=== PATIENT | male | born 1965 | race Caucasian/White ===

== ENCOUNTER → 2018-01-07 | Outpatient (CLI) | payer BC ==
[~2018-01-07] MED LIST: IOPAMIDOL (ISOVUE 370) 100 ML BTL IV ONE
== END ==
LOC: FIMAGING 07:01
PROVIDERS: ATTEND Internal Medicine
DX: I82.B12 Acute embolism and thrombosis of left subclavian vein (principal); I26.99 Other pulmonary embolism without acute cor pulmonale
CPT/HCPCS: Q9967

== ENCOUNTER → 2018-02-12 | Day surgery (SDC) | payer BC, OTHER ==
[~2018-02-12] MED LIST changes: -IOPAMIDOL (ISOVUE 370) 100 ML BTL IV ONE; +IOPAMIDOL (ISOVUE-370) 150 ML BTL IV ONE
--- NOTE | 2018-02-12 09:53 | PDRADPRE ---
Radiology History & Physical Indication for procedure: other (LUE DVT) Allergies/Adverse Reactions: No Known Allergies Allergy (Unverified 09/29/13 19:30) Mental status: A&Ox3 Heart exam: regular rate and rhythm Lungs exam: clear to auscultation Mallampati Score: Class 2
--- NOTE | 2018-02-12 09:55 | PDRADPN ---
Radiology Procedure Note Date of Procedure: 02/12/18 Radiologist: Ronn Quiros Anesthesia: Local (Specify) (Lidocaine) Pre-op Diagnosis: LUE DVT Post-op Diagnosis: LUE DVT Indication: Eval for Thoracic outlet syndrome Procedure: LUE venogram Finding(s): Residulal clot in left basilic/axillary/subclavian vein with thyrocervical collaterals on adduction. Abduction views significantly worsen collaterals with compression of left subclavian vein c/w extrinsic compresssion. Please see separately dicated radiology report for further details. Inf/Abcess present in the surg proc area at time of surgery?: No
== END | disposition home or self-care (01) ==
LOC: FIMAGING 08:15
PROVIDERS: ATTEND Surgery
PROC: B5171ZZ Fluoroscopy of Left Subclavian Vein using Low Osmolar Contrast (ICD-10-PCS; principal; 2018-02-12)
DX: I87.1 Compression of vein (principal); G54.0 Brachial plexus disorders; I82.B12 Acute embolism and thrombosis of left subclavian vein; I82.A12 Acute embolism and thrombosis of left axillary vein; I82.612 Acute embolism and thrombosis of superficial veins of left upper extremity
CPT/HCPCS: J1644; Q9967

== ENCOUNTER → 2018-05-07 | Outpatient (CLI) | payer OTHER | LOC: FIMAGING 11:16 | PROVIDERS: ATTEND Surgery | DX: G54.0 Brachial plexus disorders (principal); I82.612 Acute embolism and thrombosis of superficial veins of left upper extremity ==

== ENCOUNTER → 2018-08-07 | Day surgery (SDC) | payer OTHER | LOC: FIMAGING 10:04 | PROVIDERS: ATTEND Radiology Diagnostic Radiology | PROC: B547ZZA Ultrasonography of Left Subclavian Vein, Guidance (ICD-10-PCS; principal; 2018-08-07) | DX: G54.0 Brachial plexus disorders (principal) ==

== ENCOUNTER 2018-09-10 06:29 | Observation (INO) | payer OTHER ==
[2018-09-10] MEDS ORDERED: ceFAZolin 2 GM/DEXTROSE 100 ML IV ONE (06:37)
[2018-09-10] MEDS ORDERED: LR 1,000 ML IV ONE (06:38)
[2018-09-10 07:31] LABS: PLATELET COUNT 240 10^3/uL (150-400)
[2018-09-10] MEDS ORDERED: MIDAZOLAM 2 MG/2 ML VIAL IVP ONE (07:53)
--- NOTE | 2018-09-10 07:53 | PDANEPAE ---
ANE History of Present Illness left thoracic outlet syndrome ANE Past Medical History - Cardiovascular History Hx Hypertension: No Hx Arrhythmias: No Hx Chest Pain: No Hx Coronary Artery / Peripheral Vascular Disease: No Hx CHF / Valvular Disease: No Hx Palpitations: No - Pulmonary History Hx COPD: No Hx Asthma/Reactive Airway Disease: No Hx Recent Upper Respiratory Infection: No Hx Oxygen in Use at Home: No Hx Sleep Apnea: No Sleep Apnea Screening Result - Last Documented: Negative - Neurologic History Hx Cerebrovascular Accident: No Hx Seizures: No Hx Dementia: No - Endocrine History Hx Diabetes: No Hypothyroid: No Hyperthyroid: No Obesity: no - Renal History Hx Renal Disorders: No - Liver History Hx Hepatic Disorders: No - Neurological & Psychiatric Hx Hx Neurological and Psychiatric Disorders: No - Cancer History Hx Cancer: No - Congenital Disorder History Hx Congenital Disorders: No - GI History Hx Gastrointestinal Disorders: No - Other Health History Other Health History: THORACIC OUTLET SYNDROME. LT ARM BASILIC DVT 12/2017 - Chronic Pain History Chronic Pain: Yes (LT ARM) - Surgical History Prior Surgeries: NONE ANE Review of Systems Review of systems is: negative Review of Systems: - Exercise capacity Exercise capacity: >=4 METS METS (RN): 6 METS ANE Patient History - Allergies Allergies/Adverse Reactions: No Known Allergies Allergy (Verified 08/05/18 16:11) - Home Medications Home medications: home medication list seen and reviewed Home Medications: Apixaban [Eliquis] 5 mg PO BID 08/05/18 [Last Taken 09/07/18] - NPO status NPO Status: no food or drink >8 hours NPO Since - Liquids (Date): 09/09/18 NPO Since - Liquids (Time): 21:30 NPO Since - Solids (Date): 09/09/18 NPO Since - Solids (Time): 21:30 - Smoking Hx Smoking Status: Never smoked - Family Anes Hx Family Hx Anesthesia Complications: NONE ANE Labs/Vital Signs - Labs Result Diagrams: 09/10/18 06:37 - Vital Signs Vital Signs: reviewed preoperatively; see RN documention for details Blood Pressure: 106/62 Heart Rate: 61 Respiratory Rate: 16 O2 Sat (%): 94 Height: 167.64 cm Weight: 73.936 kg ANE Physical Exam - Airway Neck exam: FROM Mallampati Score: Class 2 Mouth exam: normal dental/mouth exam - Pulmonary Pulmonary: no respiratory distress - Cardiovascular Cardiovascular: regular rate and rhythym - ASA Status ASA Status: II ANE Anesthesia Plan Anesthesia Plan: general endotracheal anesthesia
--- NOTE | 2018-09-10 08:26 | PDHPUP ---
History & Physical Update H&P update statement: This history and physical update is based on an assessment of the patient which was completed after admission or registration (within 24 hours), but prior to the surgery/procedure. H&P update: H&P reviewed & patient examined, no change in patient's condition since H&P completed
[2018-09-10] MEDS ORDERED: DEXAMETHASONE 4 MG/ML VIAL ONE ×2 (08:38→08:45)
[2018-09-10] MEDS ORDERED: ROCURONIUM 50 MG/5 ML VIAL ONE (08:38)
[2018-09-10] MEDS ORDERED: LIDOCAINE 2% 2 ML INJ ONE (08:38)
[2018-09-10] MEDS ORDERED: ONDANSETRON 4 MG/2 ML VIAL ONE (08:38)
[2018-09-10] MEDS ORDERED: fentaNYL 100 MCG/2 ML INJ ONE ×2 (08:40→11:12)
[2018-09-10] MEDS ORDERED: oxyCODONE IR 5 MG TAB PO PRN (09:38)
[2018-09-10] MEDS ORDERED: ACETAMINOPHEN 500 MG TAB PO PRN (09:38)
[2018-09-10] MEDS ORDERED: HYDROmorphONE/DILAUDID 1 MG/ML INJ IVP PRN ×2 (09:38→11:01)
[2018-09-10] MEDS ORDERED: LABETALOL HCL 5 MG/ML 20 ML MDV IVP PRN (09:38)
[2018-09-10] MEDS ORDERED: fentaNYL 100 MCG/2 ML INJ IVP PRN (09:38)
[2018-09-10] MEDS ORDERED: ALBUTEROL 3 ML DEYVIAL IH PRN (09:38)
[2018-09-10] MEDS ORDERED: LR 500 ML IV PRN (09:38)
[2018-09-10] MEDS ORDERED: METOCLOPRAMIDE 10 MG/2 ML VIAL IVP PRN (09:38)
[2018-09-10] MEDS ORDERED: ONDANSETRON 4 MG/2 ML VIAL IVP PRN ×2 (09:38→11:01)
[2018-09-10] MEDS ORDERED: DIAZEPAM 10 MG/2 ML SYR IVP PRN (09:38)
[2018-09-10] MEDS ORDERED: PHENYLEPHRINE HCL 100 MCG/ML SYR IVP PRN (09:38)
[2018-09-10] MEDS ORDERED: MEPERIDINE 25 MG/0.5 ML AMP IVP PRN (09:38)
[2018-09-10] MEDS ORDERED: DEXAMETHASONE 4 MG/ML VIAL IVP PRN (09:38)
[2018-09-10] MEDS ORDERED: PROMETHAZINE HCL 25 MG/ML INJ IVP PRN (09:38)
[2018-09-10] MEDS ORDERED: NALOXONE HCL 0.4 MG/ML INJ IVP PRN (09:38)
[2018-09-10] MEDS ORDERED: THROMBIN (BOVINE) 20,000 UNIT VIAL TP ONE (10:28)
[2018-09-10] MEDS ORDERED: SUGAMMADEX SODIUM 200 MG/2 ML VIAL IVP ONE (10:28)
[2018-09-10] MEDS ORDERED: KETOROLAC 30 MG/1 ML SDV ONE (10:31)
--- NOTE | 2018-09-10 10:59 | POSTOPPROG ---
Post Op Note Date of Operation: 09/10/18 Surgeon: Miquel Johnson Dubbing Machine Operator: Colette Johnson Anesthesiologist: CHINEDU Hamilton Anesthesia: GET(General Endotracheal) Pre-op Diagnosis: YOLANDAE VEDA c hx of DVT Post-op Diagnosis: same Procedure: transaxillary L 1st rib resection Inf/Abcess present in the surg proc area at time of surgery?: No EBL: Minimal Bowel Protocol: N/A Clean Closure Performed: N/A Specimen(s): rib to pathology
[2018-09-10] MEDS ORDERED: OXYCODONE/APAP 5/325 TAB PO PRN (11:01)
[2018-09-10] MEDS ORDERED: NS 1,000 ML IV SCH (11:15)
--- NOTE | 2018-09-10 15:00 | POSTANESTH ---
Post Anesthetic Evaluation Cardiovascular Status: Normal, Stable Respiratory Status: Normal, Stable Level of Consciousness/Mental Status: Can Participate in Eval Pain Control: Adequate, Prn Tx Ordered Nausea/Vomiting Control: Adequate, Prn Tx Ordered Complications Possibly Related to Anesthesia: None Noted
--- NOTE | 2018-09-10 19:13 | SOAPPROG ---
SOAP Progress Note Assessment/Plan: Assessment/Plan: 53 Y M s/p 1st rib resection for TOS and DVT, POD#0. Doing well. Minimal pain. Ambulating well. Wounds intact. Continue post op care. Dispo: likely tomorrow. 09/10/18 19:11 Objective: Vital Signs Temp Pulse Resp BP Pulse Ox 37.0 C 94 14 129/84 H 91 L 09/10/18 15:02 09/10/18 15:02 09/10/18 15:02 09/10/18 15:02 09/10/18 15:02 Laboratory Results 09/10/18 06:37 09/09/18 09/10/18 09/11/18 05:59 05:59 05:59 Intake Total 1300 Output Total 100 Balance 1200 ICD10 Worksheet Patient Problems: Problems Problem Status Onset Thoracic outlet syndrome Acute
--- NOTE | 2018-09-11 | GOP ---
[f rep st] OPERATIVE REPORT DATE OF OPERATION: 09/10/2018 SURGEON: Miquel Johnson MD FINANCIAL ANALYST ACCOUNTANT: Colette Johnson, MEJIA. ANESTHESIOLOGIST: Dr. Hamilton. PREOPERATIVE DIAGNOSIS: Left thoracic outlet syndrome. POSTOPERATIVE DIAGNOSIS: Left thoracic outlet syndrome. PROCEDURE PERFORMED: Transaxillary left 1st rib resection. FINDINGS: Patient was found to have a tight outlet with a normal first rib and a thick anterior scal gabriela muscle. ESTIMATED BLOOD LOSS: Less than 50 cc. DESCRIPTION OF PROCEDURE: The patient was taken to the operating room where he received a satisfacto ry general endotracheal anesthesia by Dr. Hamilton. He was placed in the left lateral decubitus posi tion at approximately 40 degrees. A short incision was made at the base of the axilla. Dissection w as carried down to the chest wall. The thoracodorsal vessels were divided with hemoclips. The inter costal brachial cutaneous nerve was spared from injury and retracted away. The bottom of the 1st rib was identified. It was opened up with electrocautery and elevated up with a West elevator, separati ng from the underlying pleura. Top of the rib was then cleared using a right angle to help divide th e anterior scalene muscle and dissecting the second and third scalene muscles off the 1st rib. The r ib was then divided posteriorly with a beef ribber with elevation of the brachial plexus. That transe cted rib was then shortened with a rongeur and smoothed out with a rasp. The bone was levered anteri moses where it again was divided with a bone cutter with care to avoid injury to any of the underlying structures. The proximal end was further trimmed back with a rongeur and the ends were smoothed off and left a good wide-open thoracic palate. Hemostasis was assured. Some topical thrombin was place d in the surgical bed. Specimens were all sent to Pathology. The wound was closed with a running 3- 0 Vicryl suture for the subcutaneous tissue and axillary fascia and a 4-0 Monocryl subcuticular stitc h for the skin. The wound was infiltrated with 0.5% Marcaine. There were no complications. Tolerat ed the procedure well and taken to the recovery room in good condition. /[id number]/MODL
--- NOTE | 2018-09-11 08:06 | SOAPPROG ---
SOAP Progress Note Assessment/Plan: Assessment/Plan: 53 Y M s/p 1st rib resection for TOS and DVT, POD#1. Doing well. Minimal pain. Ambulating well. Wounds intact. PPx lovenox this am. Restart eliquis at home this pm. Dispo: dc to home. f/u next week. S: took a pain pill to sleep but comfortable. no sob. eager to go home. O: alert, nad ctab inc cdi, moderate ecchymosis. abducts arm well rrr abd soft 09/11/18 08:03 Objective: Vital Signs Temp Pulse Resp BP Pulse Ox 37.1 C 76 16 108/62 93 09/11/18 04:00 09/11/18 04:00 09/11/18 04:00 09/11/18 04:00 09/11/18 04:00 Laboratory Results 09/11/18 04:55 09/11/18 04:55 09/10/18 09/11/18 09/12/18 05:59 05:59 05:59 Intake Total 1800 Output Total 100 Balance 1700 ICD10 Worksheet Patient Problems: Problems Problem Status Onset Thoracic outlet syndrome Acute - ICD10 Problem Qualifiers (1) Thoracic outlet syndrome
[2018-09-11 08:51] VITALS: BP 120/76
[2018-09-11] MEDS ORDERED: ENOXAPARIN 40 MG/0.4 ML SYR SC SCH (09:00)
[2018-09-12] MEDS ORDERED: ENOXAPARIN 40 MG/0.4 ML SYR SC SCH (09:00)
== END 2018-09-11 09:41 | disposition home or self-care (01) ==
LOC: F3N 06:29 → F3E 07:26
PROVIDERS: ADMIT Surgery; ATTEND Surgery
PROC: 0PB10ZZ Excision of 1 to 2 Ribs, Open Approach (ICD-10-PCS; principal; 2018-09-10 08:45)
DX: I87.1 Compression of vein (principal); G54.0 Brachial plexus disorders; Z86.718 Personal history of other venous thrombosis and embolism; Z79.01 Long term (current) use of anticoagulants
CPT/HCPCS: 21600; 71045; G0378; J0690; J1100; J1650; J1885; J2250; J2405; J3010

== ENCOUNTER 2018-11-11 13:08 | Day surgery (SDC) | payer OTHER | END 2018-11-11 16:16 | disposition home or self-care (01) | LOC: FIMAGING 13:08 ==